=== PATIENT | female | born 2000 | race African-American/Black ===

== ENCOUNTER 2020-11-12 16:03 | Emergency (ER) | payer OTHER ==
[~2020-11-12] VITALS: Ht 149.9 cm; Wt 65.1 kg
--- NOTE | 2020-11-12 16:55 | REP ---
INDICATION: cough. COMPARISON: No comparison chest x-ray. TECHNIQUE: Two views.. FINDINGS: The lungs are well inflated and free of infiltrate. The pleural angles are sharp. The heart size is normal. Pulmonary vasculature is not increased. No significant bony abnormality is seen. Nipple jewelry and umbilical jewelry are noted incidentally. IMPRESSION: Negative chest x-ray. <Electronically signed by Chano Williamson > 11/12/20 [id number]
[2020-11-12] MEDS ORDERED: BENZONATATE 100 MG CAP PO ONE (18:15)
[2020-11-12] MEDS ORDERED: IBUPROFEN 600MG TAB PO ONE (18:15)
[2020-11-12] MEDS ORDERED: TESS100C PO (18:17)
[2020-11-12] MEDS ORDERED: PSEU120T19 PO (18:17)
[2020-11-12] MEDS ORDERED: FLON1SPR NARES (18:17)
[2020-11-12] MEDS ORDERED: ALL10TAB2 PO (18:17)
[2020-11-12 18:23] VITALS: BP 113/79
== END 2020-11-12 18:24 | disposition home or self-care (01) ==
LOC: M ED 16:03
DX: J06.9 Acute upper respiratory infection, unspecified (principal); B34.9 Viral infection, unspecified

== ENCOUNTER 2020-12-26 16:45 | Emergency (ER) | payer OTHER ==
[~2020-12-26] VITALS: Ht 149.9 cm; Wt 66.5 kg
[~2020-12-26 16:45] MED LIST: ALL10TAB2 PO; FLON1SPR NARES; PSEU120T19 PO; TESS100C PO
[2020-12-26 19:28] VITALS: BP 132/78
== END 2020-12-26 19:34 | disposition home or self-care (01) ==
LOC: M ED 16:45
DX: J06.9 Acute upper respiratory infection, unspecified (principal); B34.8 Other viral infections of unspecified site; Z20.822 Contact with and (suspected) exposure to COVID-19
CPT/HCPCS: 99283; U0003

== ENCOUNTER → 2021-04-10 | Outpatient (REF) | payer OTHER | LOC: M LAB REF 15:39 | PROVIDERS: ATTEND Physician Assistant | DX: N39.0 Urinary tract infection, site not specified (principal) ==

== ENCOUNTER → 2021-05-03 | Outpatient (CLI) | payer OTHER ==
--- NOTE | 2021-05-05 08:30 | PFTRPT ---
Height: 59.00 Inches Weight: 140.00 Lbs BSA: 1.58 Diagnosis: R06.0 DATE: 05/03/2021 ORDERING PHYSICIAN: Phuong Alexander Pre and post bronchodilator studies have excellent technical quality. Forced vital capacity is normal. FEV1 is in proportion. Obstructive index is therefore normal. Expiratory limit of the flow-volume loop is normal. No significant bronchodilator response is identified. Total lung capacity is normal. Residual volume is in proportion. Diffusing capacity is normal. No hemoglobin available for correction. Airway resistance and conductance are normal. IMPRESSION: Normal study. MTDD
== END ==
LOC: M CARPUL 13:08
PROVIDERS: ATTEND Physician Assistant
DX: R06.02 Shortness of breath (principal)